=== PATIENT | male | born 1950 | race Caucasian/White ===

== ENCOUNTER 2022-06-09 16:27 | Inpatient (IN) ==
[2022-06-09] MEDS ORDERED: 0.9 % Sodium Chloride 1,000 ML IVC ONE (16:34)
[2022-06-09] MEDS ORDERED: Ondansetron 4 MG/2 ML VIAL IVP ONE (16:34)
[2022-06-09] MEDS ORDERED: *HR* Heparin 5,000 UNIT/ML VIAL IVP ONE (16:34)
[2022-06-09] MEDS ORDERED: *HR* Ticagrelor 90 MG TABLET PO ONE (16:34)
[2022-06-09] MEDS ORDERED: *HR* Heparin 5,000 UNIT/ML VIAL IVP PRN ×2 (16:34)
[2022-06-09] MEDS ORDERED: Nitroglycerin 1,000 MCG/5 ML VIAL IV ONE (16:35)
[2022-06-09] MEDS ORDERED: *HR* Heparin 10,000 UNIT/10 ML VIAL ONE (16:35)
[2022-06-09] MEDS ORDERED: Heparin 1,000 UNITS/500 mL 500 ML ONE (16:35)
[2022-06-09] MEDS ORDERED: 0.9 % Sodium Chloride 2,000 ML ONE (16:35)
[2022-06-09] MEDS ORDERED: Iopamidol - 370 200 ML INFUS..BTL ONE ×2 (16:35→17:17)
[2022-06-09] MEDS ORDERED: *HR* Heparin 5,000 UNIT/ML VIAL ONE (16:40)
[2022-06-09] MEDS ORDERED: Heparin 25,000UNIT/250ML 1/2NS 25,000 UNIT/250 ML IV.SOLN ONE (16:41)
[2022-06-09] MEDS ORDERED: Ondansetron 4 MG/2 ML VIAL ONE (16:41)
[2022-06-09] MEDS ORDERED: *HR* Ticagrelor 90 MG TABLET ONE (16:41)
[2022-06-09] MEDS ORDERED: *HR* Midazolam HCl 2 MG/2 ML VIAL ONE (16:44)
[2022-06-09] MEDS ORDERED: *HR* FentaNYL (PF) 100 MCG/2 ML VIAL ONE (16:44)
[2022-06-09] MEDS ORDERED: Tirofiban 12.5 MG/250ML 12.5 MG/250 ML BAG ONE (16:48)
[2022-06-09] MEDS: Heparin 25,000UNIT/250ML 1/2NS 25,000 UNIT/250 ML IV.SOLN IVC SCH (16:48)
[2022-06-09 16:49] LABS: Basophils # 0.1 K/mcL (0.0-0.2); Basophils % 0.6 %; Eosinophils # 0.1 K/mcL (0.0-0.6); Eosinophils % 1.1 %; Hematocrit 38.8 % (37.5-50.1); Hemoglobin 13.3 g/dL (12.9-16.9); Immature Granulocytes % 0.2 % (0-4); Lymphocytes # 1.7 K/mcL (0.6-4.6); Lymphocytes % 21.5 %; Mean Corpuscular HGB Conc 34.3 g/dL (31.6-35.5); Mean Corpuscular Hemoglobin 30.2 pg (28.0-33.3); Mean Platelet Volume 9.5 fL (9.4-12.4); Monocytes # 1.2 K/mcL (0.0-1.3); Monocytes % 14.7 %; Platelet Count 203 K/mcL (140-400); Red Blood Count 4.41 M/mcL (4.19-5.50); Red Cell Distribution Width 13.8 % (11.5-14.5); Segmented Neutrophils % 61.9 %; White Blood Count 8.1 K/mcL (4.3-11.1)
[2022-06-09 17:00] LABS: Activated Partial Thrombo Time 30.3 Seconds (26.0-36.0); INR 1.3; Prothrombin Time 14.4 Seconds (9.4-12.1)
[2022-06-09] MEDS ORDERED: *HR* Atropine Sulfate 1 MG/10 ML SYRINGE ONE (17:09)
[2022-06-09 17:11] LABS: BUN/Creatinine Ratio 15 (6-26); Blood Urea Nitrogen 18 mg/dL (8-23); Calcium 8.9 mg/dL (8.6-10.3); Carbon Dioxide 24 mEq/L (23-29); Chloride 105 mEq/L (98-107); Glucose 117 mg/dL (70-105); Osmolality,Calculated 285 (280-300); Potassium 3.7 mEq/L (3.5-5.1); Sodium 136 mEq/L (136-145); eGFR For African Americans > 60 (> 60); eGFR For Non-African Americans > 60 (> 60)
[2022-06-09 17:12] LABS: Troponin I < 0.03 ng/mL (< 0.04)
[2022-06-09] MEDS ORDERED: Perflutren Lipid Microsphere 1.3 ML in 0.9 % Sodium Chloride 8.7 ML IVP PRN (17:50)
[2022-06-09] MEDS ORDERED: Tirofiban 12.5 MG/250ML 12.5 MG/250 ML BAG IVC SCH (18:00)
[2022-06-09 18:59] LABS: Estimated Average Glucose 117 mg/dl; Hemoglobin A1C 5.7 %
[2022-06-09] MEDS: *HR* Ticagrelor 90 MG TABLET PO SCH (20:20)
[2022-06-10] MEDS: Heparin 25,000UNIT/250ML 1/2NS 25,000 UNIT/250 ML IV.SOLN IVC SCH (00:34)
[2022-06-10 05:05] LABS: Basophils % 0.4 %; Eosinophils # 0.1 K/mcL (0.0-0.6); Eosinophils % 1.6 %; Hematocrit 37.7 % (37.5-50.1); Hemoglobin 12.4 g/dL (12.9-16.9); Immature Granulocytes % 0.4 % (0-4); Lymphocytes % 12.3 %; Mean Corpuscular HGB Conc 32.9 g/dL (31.6-35.5); Mean Corpuscular Hemoglobin 29.7 pg (28.0-33.3); Mean Corpuscular Volume 90.4 fL (83.0-100.0); Mean Platelet Volume 9.3 fL (9.4-12.4); Monocytes # 0.8 K/mcL (0.0-1.3); Monocytes % 10.3 %; Platelet Count 161 K/mcL (140-400); Red Blood Count 4.17 M/mcL (4.19-5.50)
[2022-06-10 05:26] LABS: BUN/Creatinine Ratio 15 (6-26); Blood Urea Nitrogen 16 mg/dL (8-23); Calcium 8.4 mg/dL (8.6-10.3); Carbon Dioxide 25 mEq/L (23-29); Chloride 108 mEq/L (98-107); Chol/HDL Ratio 2.9 (0-4.9); Cholesterol 110 mg/dL (< 200); Glucose 97 mg/dL (70-105); HDL Cholesterol 38 mg/dL (40-59); LDL Cholesterol,Calculated 59 mg/dL (< 100); Osmolality,Calculated 283 (280-300); Potassium 4.3 mEq/L (3.5-5.1); Sodium 136 mEq/L (136-145); Triglycerides 66 mg/dL (< 150); eGFR For African Americans > 60 (> 60); eGFR For Non-African Americans > 60 (> 60)
[2022-06-10] MEDS: *HR* Ticagrelor 90 MG TABLET PO SCH ×2 (09:44→20:00)
[2022-06-10] MEDS: Aspirin 81 MG TAB.CHEW PO SCH (09:45)
[2022-06-10] MEDS: Finasteride 5 MG TABLET PO SCH (09:45)
[2022-06-10] MEDS ORDERED: lisinopriL 5 MG TABLET PO SCH (14:15)
[2022-06-10] MEDS ORDERED: Latanoprost 2.5 ML BOTTLE BOTH EYES SCH (21:00)
[2022-06-11 06:43] VITALS: TEMP 98; O2SAT 99
[2022-06-11] MEDS ORDERED: lisinopriL 5 MG TABLET PO SCH (09:00)
[2022-06-11] MEDS: Aspirin 81 MG TAB.CHEW PO SCH (09:11)
[2022-06-11] MEDS: Finasteride 5 MG TABLET PO SCH (09:11)
[2022-06-11] MEDS: *HR* Ticagrelor 90 MG TABLET PO SCH (09:11)
[2022-06-11 10:06] VITALS: BP 130/76
[2022-06-11 10:54] VITALS: PULSE 62
== END 2022-06-11 12:20 | disposition home or self-care (01) | DRG 247 ==
LOC: EMEROOARM 16:27 → ICNU 16:54 → MERGE 17:46 → 2NENU 06-10 23:59
PROVIDERS: ADMIT Internal Medicine Cardiovascular Disease; ATTEND Internal Medicine Cardiovascular Disease